=== PATIENT | female | born 1970 | race Asian ===

== ENCOUNTER 2024-06-23 10:01 | Day surgery (SDC) | payer OTHER ==
[~2024-06-23] VITALS: Ht 152.4 cm; Wt 54.2 kg
[~2024-06-23 10:01] MED LIST: BUSP5TA PO; CALC1TAB42 PO; FLUO-365 PO; OMEP40CA5 PO; OXYB15TA14 PO; THERTAB52 PO; TRAZ-252 PO
[2024-06-23] MEDS: NS 1,000 ML IV ONE (10:23)
[2024-06-23] MEDS ORDERED: propofoL 200 MG/20 ML VIAL As Ordered ONE (12:37)
[2024-06-23] MEDS ORDERED: LIDOCAINE 2% 100MG/5ML SDV (FOR ANES.) As Ordered ONE (12:37)
[2024-06-23 13:02] VITALS: TEMP 97.9
[2024-06-23 13:20] VITALS: BP 118/58; O2SAT 95
== END 2024-06-23 13:25 | disposition home or self-care (01) ==
LOC: M OPP 10:01
PROVIDERS: ATTEND Internal Medicine Gastroenterology
DX: K31.84 Gastroparesis (principal); K29.50 Unspecified chronic gastritis without bleeding; Z79.899 Other long term (current) drug therapy; Z88.3 Allergy status to other anti-infective agents